=== PATIENT | female | born 1995 | race Caucasian/White ===

== ENCOUNTER 2018-09-20 12:07 | Emergency (ER) | payer SELFPAY ==
[2018-09-20] MEDS: DEXAMETHASONE 10 MG/ML 1 ML INJ IM (13:13)
== END 2018-09-20 14:42 | disposition home or self-care (01) ==
LOC: FTE 12:07
DX: J02.9 Acute pharyngitis, unspecified (principal)
CPT/HCPCS: 81025; 96372; 99284-25